=== PATIENT | male | born 1975 | race Caucasian/White ===

== ENCOUNTER 2017-06-14 02:19 | Emergency (ER) | payer BC ==
[~2017-06-14] VITALS: Ht 188 cm; Wt 112.0 kg
[2017-06-14] MEDS ORDERED: BP MEDS (02:29)
[2017-06-14] MEDS ORDERED: HIV MEDS (02:29)
[2017-06-14 02:30] VITALS: BP 116/69
[2017-06-14] MEDS ORDERED: Fluorescein Strips RIGHT EYE ONE (02:45)
[2017-06-14] MEDS ORDERED: POLYTRIM OP SOL10 ML OPHTHALM (02:57)
[2017-06-14] MEDS ORDERED: IBUPROFEN600 MG ORAL (02:57)
--- NOTE | 2017-06-14 02:57 | Emergency Room Report ---
History of Present Illness General Chief Complaint: Eye Problems Source: Patient Present Illness HPI Is a 41-year-old male with no significant past medical history. He presents with right eye pain. Woke up with it. [place] something in his eyes been rubbing it. Now is getting worse. No fever or chills. Carrying. Worse with light. Pain is 10 out of 10. No other trauma. Does not wear glasses. Allergies: Coded Allergies: No Known Allergies (Unverified , 06/14/17) Patient History Past Medical History: see triage record, old chart reviewed Past Surgical History: other Pertinent Family History: none Social History: Denies: smoking Immunizations: other Reviewed Nursing Documentation: PMH: Agreed, PSxH: Agreed Nursing Documentation-PMH Hx Hypertension: Yes Review of Systems Eye: Reports: eye pain, Denies: blurred vision ENT: Denies: ear pain, nose congestion, throat swelling Respiratory: Denies: cough, shortness of breath Cardiovascular: Denies: chest pain, palpitations Gastrointestinal: Denies: abdominal pain, diarrhea, nausea, vomiting Musculoskeletal: Denies: back pain, joint pain Skin: Denies: rash Neurological: Denies: headache, numbness Endocrine: Denies: increased thirst, increased urine Hematologic/Lymphatic: Denies: easy bruising All Other Systems: negative except mentioned in HPI Physical Exam Vital Signs Date Time Temp Pulse Resp B/P (MAP) Pulse Ox O2 Delivery O2 Flow Rate FiO2 06/14/17 02:20 97.9 108 16 116/69 95 Room Air vitals normal Sp02 EP Interpretation: reviewed, normal General Appearance: well appearing, no apparent distress, alert Head: normocephalic, atraumatic Eyes: left eye other - Right conjunctiva is injected. There is a small corneal abrasion at 9:00 position. Negative Kamar sign., bilateral eye PERRL, bilateral eye EOMI ENT: hearing grossly normal, normal pharynx Neck: full range of motion, supple, no meningismus Respiratory: chest non-tender, lungs clear, normal breath sounds Cardiovascular #1: regular rate, rhythm, no murmur Gastrointestinal: normal bowel sounds, non tender, no mass, no organomegaly, no bruit, non-distended Musculoskeletal: back normal, gait/station normal, normal range of motion Psychiatric: mood/affect normal Skin: warm/dry Medical Decision Making Diagnostic Impression: Primary Impression: Corneal abrasion, right Qualified Codes: S05.01XA - Injury of conjunctiva and corneal abrasion without foreign body, right eye, initial encounter ER Course Patient with a corneal abrasion. No foreign body seen. I everted the eyelids. No globe rupture. We'll discharge home Last Vital Signs Date Time Temp Pulse Resp B/P (MAP) Pulse Ox O2 Delivery O2 Flow Rate FiO2 06/14/17 02:30 97.9 16 116/69 95 Room Air 06/14/17 02:20 108 Status: improved Disposition: HOME, SELF-CARE Condition: Stable Scripts Ibuprofen* (MOTRIN*) 600 Mg Tablet 600 MG ORAL THREE TIMES A DAY, #30 TAB 0 Refills Prov: VINICIUS LUCAS M.D. 06/14/17 Polymyxin/Trimethoprim (Polytrim Eye Drops) 10 Ml Drops 2 DROP OPHTHALM THREE TIMES A DAY, #1 EA Instill in affected eye for 7 days Prov: VINICIUS LUCAS M.D. 06/14/17 Additional Instructions: followup with your DrTiffanie in 2-3 days if not better. You may need a referral to see an eye doctor if not better. Return if worse. VINICIUS LUCAS M.D. Jun 14, 2017 02:57
[2017-06-14] MEDS ORDERED: Norco 5mg/325mg tab ORAL ONE (03:00)
[2017-06-14 03:02] VITALS: BP 116/69
== END 2017-06-14 03:02 | disposition home or self-care (01) ==
LOC: EMR 02:56
DX: S05.01XA Injury of conjunctiva and corneal abrasion without foreign body, right eye, initial encounter (principal); X58.XXXA Exposure to other specified factors, initial encounter; Y92.009 Unspecified place in unspecified non-institutional (private) residence as the place of occurrence of the external cause; I10 Essential (primary) hypertension
CPT/HCPCS: 99284

== ENCOUNTER 2018-04-15 18:38 | Emergency (ER) | payer BC ==
[~2018-04-15] VITALS: Ht 190.5 cm; Wt 122.5 kg
[~2018-04-15 18:38] MED LIST: BP MEDS; HIV MEDS; IBUPROFEN600 MG ORAL; POLYTRIM OP SOL10 ML OPHTHALM
[2018-04-15] MEDS ORDERED: Nitroglycerin 2% oint pkt TOPIC ONE (19:00)
[2018-04-15] MEDS ORDERED: Nitroglycerin Subl 0.4mg tab SL PRN (19:15)
[2018-04-15] MEDS ORDERED: Isovue-370 150ml vial INJ PRN ×2 (19:15→20:30)
[2018-04-15] MEDS ORDERED: Morphine Sulfate 4mg/ml Inj (IV/IM USE ONLY) IVP ONE (19:15)
[2018-04-15 19:23] VITALS: BP 90/40
[2018-04-15 19:40] LABS: ANION GAP 13 mmol/L (5-15); BLOOD UREA NITROGEN 14 mg/dL (7-18); CALCIUM 10.2 MG/DL (8.5-10.1); CARBON DIOXIDE 25 MMOL/L (21-32); CHLORIDE 98 MMOL/L (98-107); CREATININE 1.2 MG/DL (0.55-1.30); POTASSIUM 3.4 MMOL/L (3.5-5.1); SODIUM 136 MMOL/L (136-145)
[2018-04-15 19:53] LABS: EOSINOPHILS % (AUTO) 1.5 % (0.0-3.0); HEMATOCRIT 52.3 % (42.0-52.0); LYMPHOCYTES % (AUTO) 36.3 % (20.0-45.0); MEAN CORPUSCULAR VOLUME 100 FL (80-99); MONOCYTES % (AUTO) 7.5 % (1.0-10.0); NEUTROPHILS % (AUTO) 53.7 % (45.0-75.0); PLATELET COUNT 197 K/UL (150-450); RED BLOOD COUNT 5.25 M/UL (4.70-6.10); RED CELL DISTRIBUTION WIDTH 12.4 % (11.6-14.8); WHITE BLOOD COUNT 11.5 K/UL (4.8-10.8)
[2018-04-15 19:54] LABS: ALANINE AMINOTRANSFERASE 144 U/L (12-78); ALBUMIN 3.6 G/DL (3.4-5.0); ALBUMIN/GLOBULIN RATIO 0.9 (1.0-2.7); ALKALINE PHOSPHATASE 69 U/L (46-116); ASPARTATE AMINO TRANSFERASE 71 U/L (15-37); BILIRUBIN,TOTAL 0.5 MG/DL (0.2-1.0); CKMB 3.9 NG/ML (0.0-3.6); CREATINE KINASE 1624 U/L (26-308)
[2018-04-15 20:06] LABS: HEMOGLOBIN 18.5 G/DL (14.2-18.0)
[2018-04-15 21:04] LABS: APPEARANCE,URINE CLEAR; BILIRUBIN, URINE NEGATIVE (NEGATIVE); COLOR,URINE PALE YELLOW; GLUCOSE, URINE (UA) NEGATIVE (NEGATIVE); KETONES,URINE NEGATIVE (NEGATIVE); LEUKOCYTE ESTERASE ,URINE NEGATIVE (NEGATIVE); NITRITE,URINE NEGATIVE (NEGATIVE); PH,URINE 7 (4.5-8.0); PROTEIN,URINE 1+ (NEGATIVE); UROBILINOGEN,URINE NORMAL MG/DL (0.0-1.0)
--- NOTE | 2018-04-15 22:19 | Emergency Room Report ---
History of Present Illness General Chief Complaint: Chest Pain Source: Patient Present Illness HPI This patient states that he is resting comfortably when he suddenly developed pain in his left chest. He states it is sudden in onset and severe in nature. He states his pain is worse with deep breathing. He denies recent illness. He denies cough or congestion. Denies fever or chills. He denies nausea or vomiting. He denies abdominal pain. He does not have a history of chest pain. He does have a history of controlled hypertension and controlled HIV. He has no other complaints. Allergies: Coded Allergies: No Known Allergies (Unverified , 06/14/17) Patient History Past Medical History: see triage record, HTN, HIV Social History: Denies: smoking, alcohol use, drug use Reviewed Nursing Documentation: PMH: Agreed; PSxH: Agreed Nursing Documentation-PMH Hx Hypertension: Yes Review of Systems All Other Systems: negative except mentioned in HPI Physical Exam Vital Signs Date Time Temp Pulse Resp B/P (MAP) Pulse Ox O2 Delivery O2 Flow Rate FiO2 04/15/18 18:44 98.0 114 25 149/95 96 Room Air 98.1 04/15/18 19:23 15.0 Sp02 EP Interpretation: reviewed, normal General Appearance: no apparent distress, alert, GCS 15, non-toxic, other - Anxious, hyperventilating Head: normocephalic, atraumatic Eyes: bilateral eye normal inspection, bilateral eye PERRL ENT: hearing grossly normal, normal pharynx, no angioedema, normal voice Neck: normal inspection, full range of motion Respiratory: lungs clear, normal breath sounds, no respiratory distress, no retraction, no accessory muscle use, speaking full sentences, other - Rapid shallow breathing, TTP over the L. chest wall. Cardiovascular #1: no edema, tachycardia Gastrointestinal: normal bowel sounds, non tender, soft, non-distended, no guarding, no rebound Rectal: deferred Musculoskeletal: back normal, gait/station normal, normal range of motion, non- tender Neurologic: alert, oriented x3, responsive, motor strength/tone normal, sensory intact, speech normal Psychiatric: judgement/insight normal, memory normal, mood/affect normal, no suicidal/homicidal ideation Skin: normal color, no rash, warm/dry, well hydrated Medical Decision Making Diagnostic Impression: Primary Impression: Chest pain ER Course This patient presented with chest pain. I initially treated this patient as cardiac chest pain. He was given aspirin, nitroglycerin and morphine. He did have mild low blood pressure and was given IV fluids which resolved the low blood pressure. The Nitropaste is also wiped off the chest wall. He remained tachycardic throughout his ED course. He did have improvement in his symptoms. I was concerned for PE given the sudden onset and pleuritic nature of the patient's pain. Therefore, I obtained a CTA of his chest which showed no evidence of PE. Also there was no evidence of aortic dissection. Overall, the patient's evaluation was reassuring. EKG showed nonspecific ST segment findings. Initial troponin was negative. Given the rapid onset and short timeframe regarding this patient's chest pain, I had planned on admitting this patient to rule out acute coronary syndrome. However, the patient left AGAINST MEDICAL ADVICE. He was educated that I could not rule out unstable angina. He indicated understanding. I did educate the patient to return for any worsening or new symptoms. At this time the patient is comfortable and would prefer to go home. Laboratory Tests Test 04/15/18 19:00 04/15/18 20:25 White Blood Count 11.5 K/UL (4.8-10.8) H Red Blood Count 5.25 M/UL (4.70-6.10) Hemoglobin 18.5 G/DL (14.2-18.0) *H Hematocrit 52.3 % (42.0-52.0) H Mean Corpuscular Volume 100 FL (80-99) H Mean Corpuscular Hemoglobin 35.3 PG (27.0-31.0) H Mean Corpuscular Hemoglobin Concent 35.4 G/DL (32.0-36.0) Red Cell Distribution Width 12.4 % (11.6-14.8) Platelet Count 197 K/UL (150-450) Mean Platelet Volume 6.5 FL (6.5-10.1) Neutrophils (%) (Auto) 53.7 % (45.0-75.0) Lymphocytes (%) (Auto) 36.3 % (20.0-45.0) Monocytes (%) (Auto) 7.5 % (1.0-10.0) Eosinophils (%) (Auto) 1.5 % (0.0-3.0) Basophils (%) (Auto) 1.0 % (0.0-2.0) Prothrombin Time 10.6 SEC (9.30-11.50) Prothrombin Time INR 1.0 (0.9-1.1) PTT 25 SEC (23-33) Sodium Level 136 MMOL/L (136-145) Potassium Level 3.4 MMOL/L (3.5-5.1) L Chloride Level 98 MMOL/L (98-107) Carbon Dioxide Level 25 MMOL/L (21-32) Anion Gap 13 mmol/L (5-15) Blood Urea Nitrogen 14 mg/dL (7-18) Creatinine 1.2 MG/DL (0.55-1.30) Estimate Glomerular Filtration Rate > 60 mL/min (>60) Glucose Level 125 MG/DL (74-106) H Calcium Level 10.2 MG/DL (8.5-10.1) H Total Bilirubin 0.5 MG/DL (0.2-1.0) Aspartate Amino Transferase (AST) 71 U/L (15-37) H Alanine Aminotransferase (ALT) 144 U/L (12-78) H Alkaline Phosphatase 69 U/L (46-116) Total Creatine Kinase 1624 U/L (26-308) H Creatine Kinase MB 3.9 NG/ML (0.0-3.6) H Creatine Kinase MB Relative Index 0.2 Troponin I 0.010 ng/mL (0.000-0.056) Total Protein 7.4 G/DL (6.4-8.2) Albumin 3.6 G/DL (3.4-5.0) Globulin 3.8 g/dL Albumin/Globulin Ratio 0.9 (1.0-2.7) L Urine Color Pale yellow Urine Appearance Clear Urine pH 7 (4.5-8.0) Urine Specific [place] 1.005 (1.005-1.035) Urine Protein 1+ (NEGATIVE) H Urine Glucose (UA) Negative (NEGATIVE) Urine Ketones Negative (NEGATIVE) Urine Blood Negative (NEGATIVE) Urine Nitrite Negative (NEGATIVE) Urine Bilirubin Negative (NEGATIVE) Urine Urobilinogen Normal MG/DL (0.0-1.0) Urine Leukocyte Esterase Negative (NEGATIVE) Urine RBC 0-2 /HPF (0 - 0) H Urine WBC 0-2 /HPF (0 - 0) Urine Squamous Epithelial Cells None /LPF (NONE/OCC) Urine Bacteria Few /HPF (NONE) Urine Opiates Screen Negative (NEGATIVE) Urine Barbiturates Screen Negative (NEGATIVE) Phencyclidine (PCP) Screen Negative (NEGATIVE) Urine Amphetamines Screen Negative (NEGATIVE) Urine Benzodiazepines Screen Negative (NEGATIVE) Urine Cocaine Screen Negative (NEGATIVE) Urine Marijuana (THC) Screen Negative (NEGATIVE) EKG Diagnostic Results Rate: normal Rhythm: NSR ST Segments: other - NSST changes. Rhythm Strip Diag. Results EP Interpretation: yes Rate: 110's Rhythm: NSR, no PVC's, no ectopy Chest X-Ray Diagnostic Results Chest X-Ray Diagnostic Results : Chest X-Ray Ordered: Yes # of Views/Limited/Complete: 1 View Indication: Chest Pain Interpretation: no consolidation, no effusion, no pneumothorax, no acute cardiopulmonary disease Impression: No acute disease Electronically Signed by: Apolinar Last Vital Signs Date Time Temp Pulse Resp B/P (MAP) Pulse Ox O2 Delivery O2 Flow Rate FiO2 04/15/18 19:23 102 25 90/40 95 Simple Mask 15.0 04/15/18 19:12 98.0 Status: improved Disposition: AGAINST MEDICAL ADVICE Condition: Stable Referrals: NOT CHOSEN IPA/MD,REFERRING (PCP) Patient Instructions: Nonspecific Chest Pain Carmel Pitts DO Apr 15, 2018 22:19
[2018-04-15 22:23] VITALS: BP 112/78
--- NOTE | 2018-04-16 11:34 | Diagnostic Imaging Report ---
Indication: Chest pain. Abdominal pain Technique: Continuous helical transaxial imaging of the chest abdomen and pelvis obtained from the thoracic inlet to the pubic symphysis during rapid intravenous contrast administration. Arterial phase of enhancement obtained. Coronal 2-D reformats were also obtained and maximum intensity projection images in multiple planes. Study obtained in a Siemens sensation [address] Automatic Exposure Control was utilized. Total Dose length Product (DLP): 1518.[address] Dose Index Volume (CTDIvol): 20.02 mGy Comparison: None Findings: The pulmonary artery is well opacified and shows no filling defects. There is no adenopathy, pleural or pericardial effusions are identified. There is no aortic dissection or aneurysm identified within the chest. The abdominal aorta appears normal caliber. There is no dissection or aneurysm. Major branches including the celiac artery, SMA, and bilateral renal arteries appear widely patent. KRISTOPHER is widely patent. The common, external, internal iliac arteries are unremarkable. There is some basilar reticular densities likely atelectasis. There is diffuse moderate severe low-attenuation of the liver consistent with fatty infiltration. The liver also appears prominent in size measuring 25 cm in the craniocaudal dimension. The gallbladder is contracted. Pancreas is unremarkable. Kidneys demonstrate during arterial phase which is not optimal. Having said that, no obvious renal abnormalities identified. There is a 1.2 cm cyst in the left kidney demonstrated. There is no evidence of a renal stone. There is no hydronephrosis. Urinary bladder is unremarkable. No free fluid or free air identified. Appendix is normal. No evidence of bowel obstruction. Small hiatal hernia noted. Small umbilical hernia containing fat demonstrated. IMPRESSION: No evidence of pulmonary embolus, aortic dissection or aneurysm. Hepatomegaly with the moderate to severe fatty infiltration. Left renal cyst Normal appendix Small umbilical hernia containing fat. [facility] has communicated the preliminary results to the Emergency Department. Their findings are largely concordant with this report. The CT scanner at [facility] is accredited by the [employer] and the scans are performed using dose optimization techniques as appropriate to a performed exam including Automatic Exposure control.
--- NOTE | 2018-04-16 13:24 | Cardiology Report ---
APPROVED REPORT EKG Measurement Heart [id number] Sinus tachycardia Nonspecific T wave abnormality Abnormal ECG
--- NOTE | 2018-04-16 13:49 | Diagnostic Imaging Report ---
Indication: Chest pain Comparison: None A single view chest radiograph was obtained. Findings: Cardiomediastinal appearance is within normal limits for age. The lungs are clear. Pulmonary vascularity is appropriate. The diaphragmatic contour is smooth and costophrenic angles are sharp. No pleural effusions are identified. The bones are unremarkable. Impression: No acute findings
== END 2018-04-15 22:23 | disposition left against medical advice (07) ==
LOC: EMR 18:50 → EDBEDREQ 21:22 → CANBEDREQ 22:02 → EMR 22:23
DX: R07.9 Chest pain, unspecified (principal); I10 Essential (primary) hypertension
CPT/HCPCS: 36415; 71045; 71275; 74174; 80053; 80307; 81003; 82550; 82553; 84484; 85025; 85610; 85730; 93005; 96361; 96374; 99284; J2270; Q9967; 74175